=== PATIENT | male | born 1970 | race Caucasian/White ===

== ENCOUNTER → 2021-08-21 | Outpatient (CLI) | payer BC ==
--- NOTE | 2021-08-21 08:24 | RAD ---
XR HAND_RIGHT 3 VIEWS History: Pain, fall. Comparison: None. Technique: 3 views of the right hand. Findings: Osseous mineralization is normal. There is an apex dorsal angulated transverse fracture of the fifth metacarpal distal metaphysis with approximately 5 mm displacement. No significant degenerative change s. Soft tissue swelling at the ulnar aspect of the hand. Calcific density at the radial base of the t humb proximal phalanx likely represents sequela of old avulsive injury. Impression: 1. Acute apex dorsal angulated and displaced fracture of the fifth metacarpal neck. Electronically signed by: Alfa Contreras MD (08/21/2021 8:22 AM) [facility]
== END ==
LOC: RAD 07:33
PROVIDERS: ATTEND Nurse Practitioner
DX: S62.336A Displaced fracture of neck of fifth metacarpal bone, right hand, initial encounter for closed fracture (principal); M79.89 Other specified soft tissue disorders; M21.831 Other specified acquired deformities of right forearm; X58.XXXA Exposure to other specified factors, initial encounter; Y93.89 Activity, other specified; Y92.89 Other specified places as the place of occurrence of the external cause; Y99.8 Other external cause status
CPT/HCPCS: 73130

== ENCOUNTER → 2021-08-29 | Outpatient (CLI) | payer BC ==
--- NOTE | 2021-08-29 08:37 | RAD ---
Exam: XR HAND_RIGHT 3 VIEWS History: Pain follow-up fracture Comparison: 08/21/2021 Findings: Osseous mineralization is normal. Redemonstrated apex dorsal angulated transverse fracture of the fif th metacarpal neck. Unchanged approximately 5 mm displacement at the volar cortex. No significant ramirez semaj formation. Radial sided and soft tissue swelling. Impression: 1. Redemonstrated angulated displaced fracture of the fifth metacarpal neck. No healing callus yet i dentified. Electronically signed by: Alfa Contreras MD (08/29/2021 8:35 AM) [id number]
== END ==
LOC: RAD 08:00
PROVIDERS: ATTEND Physician Assistant
DX: S62.336A Displaced fracture of neck of fifth metacarpal bone, right hand, initial encounter for closed fracture (principal); M79.89 Other specified soft tissue disorders; X58.XXXA Exposure to other specified factors, initial encounter; Y93.89 Activity, other specified; Y92.89 Other specified places as the place of occurrence of the external cause; Y99.8 Other external cause status
CPT/HCPCS: 73130

== ENCOUNTER → 2021-09-04 | Outpatient (CLI) | payer BC ==
--- NOTE | 2021-09-04 15:56 | RAD ---
EXAM: Right hand, 3 views. HISTORY: Fracture. COMPARISON: 08/29/2021 FINDINGS: 3 views of the right hand are obtained. There has been no change in a displaced and angled limited fracture of the distal fifth metacarpal. There is a stable tiny ossicle at the base of the fi rst proximal phalanx, likely due the sequela of a prior avulsion injury. IMPRESSION: No change in a distal fifth metacarpal fracture. Electronically signed by: Cassi Espinosa MD (09/04/2021 3:53 PM) [id number]
== END ==
LOC: RAD 15:38
PROVIDERS: ATTEND Physician Assistant
DX: S62.336D Displaced fracture of neck of fifth metacarpal bone, right hand, subsequent encounter for fracture with routine healing (principal); X58.XXXD Exposure to other specified factors, subsequent encounter
CPT/HCPCS: 73130

== ENCOUNTER → 2021-10-09 | Outpatient (CLI) | payer BC ==
--- NOTE | 2021-10-10 08:18 | RAD ---
Study: XR HAND_RIGHT 3 VIEWS Indication: Fracture follow-up. Comparison: Most recently on 09/04/2021 Findings: Unchanged alignment of the fifth metacarpal neck fracture again exhibiting dorsal apex angulation and with the metacarpal head deviated in the radial direction. Increasing callus formation though with f racture cleft still able to be identified. No newly developed fracture. No advanced arthrosis. Small focus of mineralization adjacent to the thumb MCP joint is unchanged. Impression: Ongoing healing of a distal fifth metacarpal fracture with increasing callus. No change in alignment. Electronically signed by: MART BLISS MD (10/10/2021 8:15 AM) [id number]
== END ==
LOC: RAD 15:36
PROVIDERS: ATTEND Physician Assistant
DX: S62.336D Displaced fracture of neck of fifth metacarpal bone, right hand, subsequent encounter for fracture with routine healing (principal); L84 Corns and callosities; X58.XXXD Exposure to other specified factors, subsequent encounter
CPT/HCPCS: 73130